=== PATIENT | male | born 2000 | race Caucasian/White ===

== ENCOUNTER 2021-01-23 13:27 | Emergency (ER) | payer MEDICAID, SELFPAY ==
--- NOTE | ~2021-01-23 | XR_ITS ---
EXAMINATION: XR CHEST CLINICAL INFORMATION: Chest wall pain COMPARISON: None TECHNIQUE: Frontal view of the chest was obtained. FINDINGS: No significant abnormality is noted involving the heart, lungs, mediastinum, bony thorax or soft tissues. XR/XR chest 1V IMPRESSION: Unremarkable chest examination.
[2021-01-23 13:40] VITALS: BP 119/86; PULSE 96; RESP 18; TEMP 37.1; O2SAT 97; BMI 29.9
--- NOTE | 2021-01-23 14:12 | ED.GENADULT ---
HPI - General Adult General Chief complaint: General Medical Stated complaint: COUGH RUNNING HEADACHE CHEST DISCOMFORT Time Seen by Provider: 01/23/21 13:44 Source: patient Mode of arrival: ambulatory History of Present Illness HPI narrative: 20-year-old male with no significant past medical history presenting to the ED complaining persistent rhinorrhea/nasal congestion since December, increased sneezing/myalgias and chest wall discomfort when sneezing. Admits grandmother had COVID-19 about 3 weeks ago. Denies fever, chills, ear pain, sore throat, shortness of breath, LE edema, recent travel, SOB Onset (ago): week(s) Related Data Allergies Allergy/AdvReac Type Severity Reaction Status Date / Time No Known Allergies Allergy Verified 01/23/21 13:43 Review of Systems Review of Systems: Constitutional: No Fever, No Chills, No Night Sweats, No Fatigue, No Malaise ENT/Mouth: No Ear Pain, + Nasal Congestion, No Sinus Pain, No Hoarseness, No sore throat, + Rhinorrhea, No Swallowing Difficulty Eyes: No Eye Pain, No Vision Changes Cardiovascular: + chest wall pain when sneezing pain, No SOB, No Edema Respiratory: No Cough, No Sputum, No Dyspnea Gastrointestinal: No Nausea, No Vomiting, No Abdominal painy Musculoskeletal: No joint pain, + Myalgias, No Joint Swelling Skin: No Skin Lesions, No rash Neuro: No Weakness, No Numbness, + Headache Yes all other systems are reviewed and are negative [facility] Past Medical History Attestation statement: The following information was validated with the patient. Medical History (Updated 01/23/21 @ 13:42 by Maura Ling RN) No known health problems Social History Social History Advance Directives: No Advance Directives Information Provided: No Physical Exam Vital Signs: Vital Signs: Last Vital Signs Temp 98.8 F 01/23/21 13:40 Pulse 96 01/23/21 13:40 Resp 18 01/23/21 13:40 BP 119/86 01/23/21 13:40 Pulse Ox 97 01/23/21 13:40 Body Mass Index 29.9 Const: General: cooperative, healthy appearing, comfortable, no acute distress, well developed, alert and awake Orientation/consciousness: patient oriented x3 Limitations: no limitations HENMT: Head: Yes normal to inspection and Yes atraumatic Ears: hearing grossly normal bilaterally and TM's normal bilaterally General nose exam: Normal external nose present and Normal nares present Face and sinus: Yes normal facial exam and Yes sinus tenderness Mouth: Normal oral and palatal mucosa present and oropharynx normal Throat: Yes posterior oropharynx normal, Yes uvula midline, No peritonsillar mass and No posterior oropharynx abnormal Eyes: General: appearance normal, both eyes and all related structures EOM: EOMs intact bilaterally Neck: Neck: Yes normal visual inspection, Yes no lymphadenopathy and Yes no meningeal signs Resp: Effort & Inspection: normal respiratory effort Auscultation: clear to auscultation bilaterally, no rales, no rhonchi and no wheezes Cardio: Rate: regular rate Heart sounds: S1 normal heart sound present and S2 normal heart sound present GI: Inspection: Yes normal to inspection Skin: Rashes: no rashes Wounds: no wounds Neuro: General: patient oriented x3 and no meningeal signs Gait exam (Neuro): Normal gait present Extrem: General: Yes normal to inspection Course Course Course Narrative: XR chest 1V IMPRESSION: Unremarkable chest examination -1558--COVID-19/influenza/RSV negative. Results discussed with patient including worrisome signs and symptoms and strict return precautions. Will initiate antibiotics for sinusitis and Flonase. He verbalized understanding feel safe for discharge home Medical Decision Making MDM Narrative Medical decision making narrative: 20-year-old male with no significant past medical history presenting to the ED complaining persistent rhinorrhea/nasal congestion since December, increased sneezing/myalgias and chest wall discomfort when sneezing. On exam VSS, NAD/nontoxic appearing, lungs CTA. Sinuses tender to palpation. Concern for viral syndrome/COVID-19 vs sinusitis. Unlikely pneumonia, or ACS/PE Plan: COVID-19 testing, CXR Lab Data Labs: Lab Results 01/23/21 Range/Units 13:51 Coronavirus (PCR) NEGATIVE (Negative) Influenza Type A (PCR) NEGATIVE (Negative) Influenza Type B (PCR) NEGATIVE (Negative) RSV RNA Qual (PCR) NEGATIVE (Negative)
[2021-01-23 14:35] LABS: Influenza A PCR NEGATIVE (Negative); Influenza B PCR NEGATIVE (Negative); Resp Syncy Virus RNA Qual PCR NEGATIVE (Negative); SARS COV2 PCR INHOUSE NEGATIVE (Negative)
[2021-01-23 16:21] VITALS: BP 118/73; PULSE 69; RESP 16; TEMP 36.4; O2SAT 97
== END 2021-01-23 16:24 | disposition home or self-care (01) ==
PROVIDERS: Physician Assistant; Emergency Provider Emergency Medicine Emergency Medical Services
DX: R05 Cough (principal); R51.9 Headache, unspecified; R07.9 Chest pain, unspecified; Z20.822 Contact with and (suspected) exposure to COVID-19
CPT/HCPCS: 0241U; 36415; 71045; 99284

== ENCOUNTER 2021-02-09 10:46 | Emergency (ER) | payer MEDICAID, SELFPAY ==
--- NOTE | ~2021-02-09 | XR_ITS ---
EXAMINATION: XR CHEST CLINICAL INFORMATION: Productive cough COMPARISON: None TECHNIQUE: 2 views of the chest were obtained. FINDINGS: No significant abnormality is noted involving the heart, lungs, mediastinum, bony thorax or soft tissues. XR/XR chest 2V IMPRESSION: Unremarkable chest examination.
[2021-02-09 10:49] VITALS: BP 131/71; PULSE 91; RESP 18; TEMP 36.8; O2SAT 98; BMI 29.0
--- NOTE | 2021-02-09 11:07 | ED_ITS ---
HPI - URI/Sore Throat General Chief Complaint: Upper Respiratory Symptoms Stated Complaint: COLD SYMPTONS CHEST HEAVY DIFF BREATING Time Seen by Provider: 02/09/21 10:54 Source: patient Mode of arrival: ambulatory Limitations: no limitations History of Present Illness HPI Narrative: 20 y/o male with no significant medial history presents with 2 days of productive cough of brown phlegm and nasal congestion. He states he has some lower anterior chest discomfort when he coughs. He is not short of breath and denies fevers. He was recently seen here on 01/23- had negative COVID test and diagnosed with sinus infection. He was treated with antibiotics and his nasal congestion improved within 3 days. He reports symptoms recurring 2 dasy ago and the productive cough is new. No history of pneumonia. No history of ast hma. No history of seasonal allergies. Non-smoker. No known COVID exposure. He is unemployed. MD elicited complaint: cough and nasal congestion Onset (ago): day(s) (2) Consistency: intermittent Description of mucous: clear Able to tolerate fluids by mouth: Yes Exacerbating factors: nothing Relieving factors: OTC cold medicine Associated symptoms: chills, rhinorrhea, nasal congestion and cough Treatments prior to arrival: none Related Data Previous Rx's Medication Instructions Recorded amoxicillin-pot clavulanate 1 tab PO Q12H 7 Days #14 tab 01/23/21 [Augmentin] fluticasone propionate [Flonase 2 spray INTRANASAL DAILY #16 g 01/23/21 Allergy Relief] amoxicillin-pot clavulanate 1 tab PO BID #14 tab 02/09/21 [Augmentin] benzonatate [Tessalon Perles] 100 mg PO TID PRN #10 cap 02/09/21 prednisone 40 mg PO DAILY #10 tab 02/09/21 Allergies Allergy/AdvReac Type Severity Reaction Status Date / Time No Known Allergies Allergy Verified 02/09/21 10:49 Review of Systems Review of Systems: Constitutional: No Fever, + Chills ENT/Mouth: No sore throat, + Rhinorrhea, No Swallowing Difficulty Eyes: No Eye Pain, No Swelling, No Redness Cardiovascular: No Chest Pain, No SOB, No Orthopnea, No Edema Respiratory: + Cough, + Sputum, No Wheezing, No dyspnea Gastrointestinal: No Nausea, No Vomiting, No Diarrhea, No abdominal Pain Musculoskeletal: No joint pain, No Myalgias Skin: No Skin Lesions, No rash Neuro: No Weakness, No Numbness, No Dizziness, + Headache Heme/Lymph: No Lymphadenopathy PMFSH Past Medical History Attestation statement: The following information was validated with the patient. Medical History No known health problems Social History Social History Advance Directives: No Advance Directives Information Provided: No Physical Exam Vital Signs: Vital Signs: Last Vital Signs Temp 98.2 F 02/09/21 10:49 Pulse 91 02/09/21 10:49 Resp 18 02/09/21 10:49 BP 131/71 02/09/21 10:49 Pulse Ox 98 02/09/21 10:49 Body Mass Index 29.0 Appearance: Alert. Oriented X3. No acute distress. Eyes: Pupils equal, round and reactive to light. ENT: Normal TM's bilaterally. Posterior oropharynx showing enlarged tonsils bilaterally without erythema or exudate, uvula midline, normal voice. Nasal turbinates with ertythema and edema bilaterally with clear mucus. Neck: Normal inspection. Neck supple. CVS: Normal heart rate and rhythm. Pulses normal. Respiratory: No respiratory distress. Breath sounds normal. Abdomen: Soft and nontender. +BS x4 Skin: Skin warm and dry. Normal skin color. Normal skin turgor. No rashes. Extremities: No lower extremity edema. Neuro: Oriented X 3. Non-focal. Course Course Course Narrative: 20 y/o male presenting with productive cough and nasal congestion x2 days. Non-toxic appearing with normal lung sounds and SPO2 98%. Will get CXR to r/o PNA and repeat COVID swab. Reevaluation(s) Reevaluation #1: CXR negative for PNA. Will treat for acute bronchitis with abx, prednisone and antitussive. Will call with Viral PCR results. Patient agrees with plan. Stable for discharge home. Discharge Plan Discharge Clinical Impression: Bronchitis Patient Disposition: Home, Self-Care Instructions: Acute Bronchitis (ED) Additional Instructions: Your chest x-ray today was normal. We will call you with the results of your COVID test. You are being treated for acute bronchitis with antibiotics and steroids. Take as prescribed. Rest. Drink plenty of fluids. Do not go out in public while you are not feeling well. Take over the counter cold/flu medications as needed for your symptoms. Take Tylenol and/or Motrin as needed for fevers and body aches. Follow up with your doctor this week. If you develop difficultly breathing or shortness of breath come back to the ER for further evaluation. Prescriptions: New benzonatate [Tessalon Perles] 100 mg capsule 100 mg PO TID PRN (Reason: cough) Qty: 10 RF: 0 prednisone 20 mg tablet 40 mg PO DAILY Qty: 10 RF: 0 amoxicillin-pot clavulanate [Augmentin] 875-125 mg tablet 1 tab PO BID Qty: 14 RF: 0 No Action amoxicillin-pot clavulanate [Augmentin] 875-125 mg tablet 1 tab PO Q12H 7 Days Qty: 14 RF: 0 fluticasone propionate [Flonase Allergy Relief] 50 mcg/actuation spray,suspension 2 spray intranasal DAILY Qty: 16 RF: 0
[2021-02-09 12:36] LABS: Influenza A PCR NEGATIVE (Negative); Influenza B PCR NEGATIVE (Negative); Resp Syncy Virus RNA Qual PCR NEGATIVE (Negative); SARS COV2 PCR INHOUSE NEGATIVE (Negative)
== END 2021-02-09 12:30 | disposition home or self-care (01) ==
PROVIDERS: Physician Assistant; Emergency Provider Emergency Medicine Emergency Medical Services
DX: J40 Bronchitis, not specified as acute or chronic (principal); R05 Cough; Z20.822 Contact with and (suspected) exposure to COVID-19; Z79.899 Other long term (current) drug therapy
CPT/HCPCS: 0241U; 36415; 71046; 99283

== ENCOUNTER 2021-02-15 18:43 | Emergency (ER) | payer MEDICAID, SELFPAY | END 2021-02-15 20:33 | disposition left against medical advice (07) | PROVIDERS: Emergency Provider Emergency Medicine | DX: R07.81 Pleurodynia (principal) ==